=== PATIENT | male | born 1940 | race Caucasian/White ===

== ENCOUNTER 2020-08-29 05:56 | Day surgery (SDC) | payer MEDICARE, BC ==
[2020-08-28 11:13] LABS: BASOPHILS # (AUTO) 0.1 X10'3 (0-0.2); BASOPHILS % (AUTO) 1.4 % (0-1); EOSINOPHILS # (AUTO) 0.2 X10'3 (0-0.9); EOSINOPHILS % (AUTO) 3.7 % (0-6); HEMATOCRIT 43.7 % (42.0-52.0); HEMOGLOBIN 15.1 g/dl (14.0-17.9); LYMPHOCYTES # (AUTO) 1.1 X10'3 (1.1-4.8); LYMPHOCYTES % (AUTO) 18.3 % (21-51); MEAN CORPUSCULAR HEMOGLOBIN 31.4 PG (27.0-31.0); MEAN CORPUSCULAR HGB CONC 34.5 g/dL (33.0-36.5); MEAN PLATELET VOLUME 7.7 FL (7.4-10.4); MONOCYTES # (AUTO) 0.4 X10'3 (0-0.9); MONOCYTES % (AUTO) 6.3 % (2-12); NEUTROPHILS # (AUTO) 4.1 X10'3 (1.8-7.7); NEUTROPHILS % (AUTO) 70.3 % (42-75); PLATELET COUNT 237 X10'3 (140-440); WHITE BLOOD COUNT 5.8 X10'3 (4.5-11.0)
[2020-08-28 11:22] LABS: ALBUMIN 3.8 G/DL (3.4-5.0); ANION GAP 11 (8-16); BLOOD UREA NITROGEN 21 MG/DL (7-18); BUN/CREATININE RATIO 15.4 (5.4-32.0); CALCIUM 9.2 MG/DL (8.5-10.1); CHLORIDE 105 MMOL/L (99-107); CREATININE 1.36 MG/DL (0.60-1.10); GLUCOSE 102 MG/DL (70-104); PARTIAL THROMBOPLASTIN TIME 24 SECONDS (22-32); POTASSIUM 4.7 MMOL/L (3.5-5.1); SODIUM 143 MMOL/L (135-145); TOTAL CARBON DIOXIDE 26.6 MMOL/L (24-32); eGFR 50 ML/MIN
[~2020-08-29] VITALS: Ht 170.2 cm; Wt 82.3 kg
[2020-08-29] VITALS (11 sets, daily range): BP systolic 116–155; BP diastolic 56–79
[2020-08-29] MEDS ORDERED: diphenhydrAMINE 25mg capsule PO PRN (06:20)
[2020-08-29] MEDS ORDERED: LORazepam 0.5 MG tablet PO PRN (06:20)
[2020-08-29] MEDS ORDERED: LIDOcaine/PRILOcaine 5gm cream TP ONE (06:20)
[2020-08-29] MEDS ORDERED: sodium bicarbonate (8.4%) inj. 150 ML in dextrose 5%-water 1,000 ML IV ONE (06:20)
[2020-08-29] MEDS ORDERED: IBUP200C5 PO (06:42)
[2020-08-29] MEDS ORDERED: midazolam 2 mg/2 ml injection ONE (07:26)
[2020-08-29] MEDS ORDERED: nitroGLYCERIN-Tridil 50MG/D5W 250 ML IV ONE (07:26)
[2020-08-29] MEDS ORDERED: LIDOcaine 1% (10mg/ml)w/preservative injection 20ml MDV ONE (07:26)
[2020-08-29] MEDS ORDERED: verapamil 2.5 mg/ml inj IV ONE (07:26)
[2020-08-29] MEDS ORDERED: fentaNYL/PF 50MCG/1 ML 2ML syringe ONE (07:26)
[2020-08-29] MEDS ORDERED: heparin 1,000unit/ml 10ml vial 10 ML ONE (07:26)
[2020-08-29] MEDS ORDERED: iohexol 350MG/ML 100ml bottle IV ONE (07:27)
[2020-08-29] MEDS ORDERED: iohexol 350 MG/ML 50ML vial IV ONE ×2 (07:27→08:35)
[2020-08-29] MEDS ORDERED: acetylcysteine 200 MG/ml 4ml vial PO SCH (08:00)
--- NOTE | 2020-08-29 09:20 | NUR ---
Pt returned from [employer] with [employer] order running as ordered.
[2020-08-29] MEDS ORDERED: sod bicarbonate 150mEq in D5W 1,150 ML IV ONE (09:40)
[2020-08-29] MEDS ORDERED: ACETYLCYSTEINE 200 MG/1 ML 4 ML ORAL SOLUTION PO ONE ×2 (09:40)
--- NOTE | 2020-08-29 13:00 | NUR ---
Patient ambulated to bathroom, ate 100% of lunch tray, vital signs charted as charted, right radial site stable, will continue to monitor.
--- NOTE | 2020-08-29 15:05 | NUR ---
Patient assisted to restroom with ease. Patient states ambulation at baseline. Vitals stable as charted, alert and oriented, wrist dressing intact, no hematoma or swelling noted. Patient and state understanding of all discharge instructions and restrictions post radial cath. Patient and all belongings escorted to 's car.
[2020-08-30] MEDS ORDERED: FLU VACC QS2020-21(6MOS UP)/PF 60 MCG/0.5 ML SYRINGE IMVAC ONE (10:00)
[2020-08-30] MEDS ORDERED: pneumococcal 23-VAL P-sac vacc 25 mcg/0.5ml vial IMVAC ONE (10:00)
== END 2020-08-29 15:05 | disposition home or self-care (01) ==
LOC: SSTAY O 05:56
PROVIDERS: ATTEND Internal Medicine Cardiovascular Disease
DX: I25.10 Atherosclerotic heart disease of native coronary artery without angina pectoris (principal); R94.39 Abnormal result of other cardiovascular function study; R06.02 Shortness of breath; I25.82 Chronic total occlusion of coronary artery; Z23 Encounter for immunization; I10 Essential (primary) hypertension; E78.5 Hyperlipidemia, unspecified; G47.30 Sleep apnea, unspecified; F40.240 Claustrophobia; Z87.891 Personal history of nicotine dependence; Z79.82 Long term (current) use of aspirin; Z79.899 Other long term (current) drug therapy; Z96.653 Presence of artificial knee joint, bilateral; Z98.890 Other specified postprocedural states; Z84.89 Family history of other specified conditions
CPT/HCPCS: 36415; 76937; 80048; 85025; 85610; 85730; 90732; 93005; 93458; 99152; 99153; C1769; C1894; G0008; G0009; J1644; J2001; J2250; J3010; Q0163; Q2039; Q9967; A4620; J3490